=== PATIENT | male | born 1945 ===

== ENCOUNTER → 2017-07-18 | Outpatient (CLI) | payer OTHER | LOC: BHFA 09:00 | PROVIDERS: ATTEND Internal Medicine Cardiovascular Disease | DX: R00.1 Bradycardia, unspecified (principal) ==

== ENCOUNTER → 2017-07-18 | Outpatient (CLI) | payer OTHER | LOC: BHFA 09:00 | PROVIDERS: ATTEND Internal Medicine Cardiovascular Disease | DX: R00.1 Bradycardia, unspecified (principal) ==

== ENCOUNTER → 2017-07-22 | Outpatient (CLI) | payer OTHER | LOC: BHLMT 13:30 | PROVIDERS: ATTEND Internal Medicine Cardiovascular Disease | DX: R00.1 Bradycardia, unspecified (principal) | CPT/HCPCS: 93017-PO ==

== ENCOUNTER → 2017-10-30 | Outpatient (CLI) | payer OTHER | LOC: BHLMT 08:30 | PROVIDERS: ATTEND Internal Medicine Cardiovascular Disease | DX: R94.39 Abnormal result of other cardiovascular function study (principal); R00.1 Bradycardia, unspecified | CPT/HCPCS: 78452; 93017; A9500 ==